=== PATIENT | female | born 1975 | race Caucasian/White ===

== ENCOUNTER 2019-11-01 10:15 | Observation (INO) ==
--- OUTSIDE RECORDS SUMMARY | 2019-11-01 10:17 | External Medical Summary | Continuity of Care Document ---
:1975 Author Name Eliecer Mathur Address Unavailable Unavailable , Care Team Providers Name Role Phone Jose Mathur Unavailable [email or web address] Active medical history not documented Allergies and Adverse Reactions Allergy history not documented Medications Medications not documented Procedures Procedures not documented Immunizations Immunizations not documented Plan of Treatment Planned Observations Planned Goals not documented Results No Known Results Results not documented
--- OUTSIDE RECORDS SUMMARY | 2019-11-01 10:17 | External Medical Summary | Continuity of Care Document ---
:1975 Author Name Eliecer Mathur Address Unavailable Unavailable , Care Team Providers Name Role Phone Jose Mathur Unavailable [email or web address] Active medical history not documented Allergies and Adverse Reactions Allergy history not documented Medications Medications not documented Procedures Procedures not documented Immunizations Immunizations not documented Plan of Treatment Planned Observations Planned Goals not documented Results No Known Results Results not documented
[2019-11-01] MEDS ORDERED: SODIUM CHLORIDE 0.9% 1000ML 1,000 ML IV ONE ×2 (10:59→12:26)
--- NOTE | 2019-11-01 11:03 | Emergency Department Note ---
Impression & Plan Sepsis, Leukocytosis, Pyelonephritis ED Provider Note NAME: REY FITZGERALD AGE: 44 SEX: F : 1975 ARRIVES VIA: Walk-In INFORMANT: Patient ED PROVIDER(S): Seymour Potts DO CHIEF COMPLAINT: Abdominal pain HPI: Patient is a 44-year-old female who presents the ER with symptoms starting this past Wednesday. She notes she had diffuse myalgias and arthralgias. At that time she had a fever of 101. She did have a headache at that time. Headache has dissipated since then. She notes that she also has a cough which started. It is been dry. She denies any loss of taste or smell. No chest pain but does have some shortness of breath with the coughing.. She notes that Wednesday she started having epigastric abdominal pain. She has not been eating since then. She admits to nausea. No vomiting. Last bowel movement was within the past 24 hours. No dysuria urgency or frequency belly pain is constant. Pain is a 5 out of 10. Patient was sent in for further evaluation of her abdominal pain. She is currently being tested for coronavirus and does not have the results. ROS: See above HPI for pertinent positives & negatives. A total of 10 systems reviewed and were otherwise negative. PAST MEDICAL HISTORY:See Below PAST SURGICAL HISTORY:See Below FAMILY HISTORY:See Below SOCIAL HISTORY:See Below HOME MEDICATIONS:See Below ALLERGIES:See Below VITALS:See Below PHYSICAL EXAMINATION: GENERAL: Sitting up in bed, alert, well appearing, well nourished, no distress, non-toxic EYE EXAM: normal conjunctiva. OROPHARYNX: no exudate, no erythema, lips, buccal mucosa, and tongue normal and mucous membranes are moist NECK: supple, no nuchal rigidity, no adenopathy, non-tender LUNGS: Clear to auscultation. Normal chest wall mechanics HEART: no murmurs, S1 normal and S2 normal ABDOMEN: abdomen soft, under palpation in the epigastric region, normo-active bowel sounds, no masses, no rebound or guarding. BACK: Back is symmetrical on inspection and there is no deformity, no midline tenderness, no CVA tenderness. SKIN: no rashes and no bruising UPPER EXTREMITIES: upper extremities are grossly normal. LOWER EXTREMITIES: No pitting edema. NEURO EXAM: Normal sensorium, cranial nerves II-XII grossly intact, normal speech, no gross weakness of arms, no gross weakness of legs. MEDICAL DECISION MAKING: Patient is a 44-year-old female who presents the ER for fevers, belly pain, and headache. IV was established blood work was obtained. Labs show a leukocytosis of 18,000. No significant anemia. BMP with a slightly elevated chloride. There is an elevation in her liver functions as well as a bilirubin. Lipase is normal. UA does suggest a clear UTI. CT abdomen pelvis confirms pyelonephritis although she has no back pain. CT head was done at the same time as she had a severe headache initially in prep for lumbar puncture although this was not performed with the pyelonephritis no clear source of infection. She was given IV fluids and IV Rocephin. Heart rate trended down from 120 to the high 80s to 90s. With her leukocytosis, transaminitis and pyelonephritis combination with her tachycardia and fevers at home discussed with the hospitalist for observation. Triage Nursing notes reviewed. Prior medical records reviewed Vital Signs: reviewed and remarkable for tachycardic Differential diagnosis: Differential diagnosis: Etiologies such as viral syndrome, otitis, pharyngitis, pneumonia, influenza, meningitis, urinary tract infection, sepsis, bacteremia, as well as others were entertained. ER treatment provided: See below Diagnostics interpreted by me: ECG: none Cardiac Monitoring: An order was placed for continuous cardiac monitoring. The monitor shows a rate of 110 with sinus rhythm. Laboratory studies: As stated above and show below. Imaging studies: CT abdomen pelvis shows acute pyelonephritis CT head was negative. Portable AP upright 1 view of the chest shows no focal infiltrate Consultation(s): Discussed with hospitalist for admission. ED COURSE: Procedures: none Critical Care: None Past Med/Surg History Surgical History (Updated 11/01/19 @ 13:50 by Angeles Santos MD) History of bilateral tubal ligation History of delivery X2 History of hysterectomy With extensive MAGDA with uterus and bladder to anterior abdominal wall Social History Smoking Status: Current every day smoker Feels Safe at Home: Yes Allergies Allergies Allergy/AdvReac Type Severity Reaction Status Date / Time No Known Allergies Allergy Unknown Verified 11/01/19 12:01 Home Meds Home Medications Medication Instructions Recorded Confirmed esomeprazole magnesium [Nexium] 40 mg PO PM 11/01/19 11/01/19 naproxen sodium [Aleve] 880 mg PO Q12H PRN 11/01/19 11/01/19 Results & Data (ED) Vital Signs Vital Signs - 24 hr 11/01/19 10:27 11/01/19 10:59 11/01/19 11:00 Temperature Temperature Source Pulse Rate 117 H 104 H 103 H Respiratory Rate 20 13 19 Blood Pressure 137/89 Blood Pressure Mean 105 Pulse Oximetry 98 Oxygen Delivery Method Room Air Sepsis Recent Fever Within 48 Hours No Sepsis New/Unexplained Change in Mental Status No Sepsis Action Taken by Nursing No Action Required 11/01/19 11:03 11/01/19 11:04 11/01/19 11:08 Temperature Temperature Source Pulse Rate 102 H 102 H Respiratory Rate 13 14 Blood Pressure 119/77 Blood Pressure Mean 84 Pulse Oximetry 100 Oxygen Delivery Method Room Air Sepsis Recent Fever Within 48 Hours Sepsis New/Unexplained Change in Mental Status Sepsis Action Taken by Nursing 11/01/19 11:30 11/01/19 11:31 11/01/19 12:00 Temperature Temperature Source Pulse Rate 102 H 93 H 87 Respiratory Rate 23 18 15 Blood Pressure 136/56 L Blood Pressure Mean 69 Pulse Oximetry Oxygen Delivery Method Sepsis Recent Fever Within 48 Hours Sepsis New/Unexplained Change in Mental Status Sepsis Action Taken by Nursing 11/01/19 12:01 11/01/19 12:02 11/01/19 12:30 Temperature Temperature Source Pulse Rate 92 H 92 H 82 Respiratory Rate 21 21 18 Blood Pressure 125/86 113/76 Blood Pressure Mean 94 84 Pulse Oximetry Oxygen Delivery Method Sepsis Recent Fever Within 48 Hours Sepsis New/Unexplained Change in Mental Status Sepsis Action Taken by Nursing 11/01/19 12:31 11/01/19 12:37 11/01/19 13:00 Temperature 36.8 C Temperature Source Oral Pulse Rate 85 94 H Respiratory Rate 23 13 Blood Pressure Blood Pressure Mean Pulse Oximetry Oxygen Delivery Method Sepsis Recent Fever Within 48 Hours Sepsis New/Unexplained Change in Mental Status Sepsis Action Taken by Nursing 11/01/19 13:30 11/01/19 13:50 11/01/19 14:00 Temperature Temperature Source Pulse Rate 85 87 94 H Respiratory Rate 23 17 15 Blood Pressure 143/99 H 165/104 H Blood Pressure Mean 111 117 Pulse Oximetry Oxygen Delivery Method Sepsis Recent Fever Within 48 Hours Sepsis New/Unexplained Change in Mental Status Sepsis Action Taken by Nursing 11/01/19 14:01 11/01/19 14:46 11/01/19 14:47 Temperature Temperature Source Pulse Rate 97 H 94 H Respiratory Rate 20 16 20 Blood Pressure 136/95 Blood Pressure Mean 108 Pulse Oximetry Oxygen Delivery Method Sepsis Recent Fever Within 48 Hours Sepsis New/Unexplained Change in Mental Status Sepsis Action Taken by Nursing 11/01/19 14:48 11/01/19 15:00 11/01/19 15:01 Temperature Temperature Source Pulse Rate 87 96 H 88 Respiratory Rate 18 19 22 Blood Pressure 129/92 Blood Pressure Mean 110 Pulse Oximetry Oxygen Delivery Method Sepsis Recent Fever Within 48 Hours Sepsis New/Unexplained Change in Mental Status Sepsis Action Taken by Nursing Laboratory Data Result diagrams: 11/01/19 11:00 11/01/19 11:00 Lab Results 11/01/19 11/01/19 11/01/19 Range/Units 11:00 11:00 11:00 WBC 18.73 H (4.8-10.8) K/uL RBC 4.49 (4.2-5.4) M/uL Hgb 14.2 (12.0-16.0) g/dL Hct 40.6 (37-47) % MCV 90.4 (80-100) fL MCH 31.6 (25-34) pg MCHC 35.0 (32-36) g/dL RDW Std Deviation 43.2 (36.4-46.3) fL RDW Coeff of Dwight 13.1 (11.5-14.5) % Plt Count 386 (130-400) K/uL MPV 9.4 (7.4-10.4) fL Immature Gran % (Auto) 0.5 % Neut % (Auto) 74.7 % Lymph % (Auto) 10.8 % Gove % (Auto) 12.7 % Eos % (Auto) 1.1 % Baso % (Auto) 0.2 % Neut # (Auto) 13.99 H (1.4-6.5) K/uL Lymph # (Auto) 2.03 (1.2-3.4) K/uL Gove # (Auto) 2.38 H (0.11-0.59) K/uL Eos # (Auto) 0.20 (0-0.5) K/uL Baso # (Auto) 0.03 (0-0.2) K/uL Immature Gran # (Auto) 0.10 H (0.00-0.02) K/uL Sodium 139 (136-145) mmol/L Potassium 3.5 (3.5-5.1) mmol/L Chloride 108 H (98-107) mmol/L Carbon Dioxide 23 (21-32) mmol/L Anion Gap 8.0 (3-11) BUN 7 (7-18) mg/dl Creatinine 0.86 (0.6-1.2) mg/dl Est Cr Clr Drug Dosing 74.1 ml/min Est GFR ( Amer) 95.9 Est GFR (Non-Af Amer) 82.7 BUN/Creatinine Ratio 8.5 L (10-20) Glucose 103 H (70-99) mg/dl Calcium 9.0 (8.5-10.1) mg/dl Total Bilirubin 1.3 H (0.2-1) mg/dl AST 47 H (15-37) U/L ALT 162 H (12-78) U/L Alkaline Phosphatase 275 H (45-117) U/L Total Protein 8.0 (6.4-8.2) gm/dl Albumin 3.0 L (3.4-5.0) gm/dl Globulin 5.0 H (2.5-4.0) gm/dl Albumin/Globulin Ratio 0.6 L (0.9-2) Lipase 37 L (73-393) U/L Urine Color Kim Urine Appearance Cloudy A (Clear) Urine pH 5.5 (4.5-7.5) Ur Specific Harrah 1.025 (1.000-1.030) Urine Protein 2+ H (Negative) Urine Glucose (UA) Negative (Negative) Urine Ketones Trace H (Negative) Urine Blood 3+ H (Negative) Urine Nitrite Positive A (Negative) Urine Bilirubin 2+ H (Negative) Urine Urobilinogen Negative (Negative) Ur Leukocyte Esterase 1+ H (Negative) Urine RBC >30 H (0-4) /hpf Urine WBC >30 H (0-5) /hpf Ur Epithelial Cells >30 H (0-5) /lpf Urine Bacteria 2+ H (Negative) Administered Medications Ciprofloxacin (Cipro / D5w) 400 mg in 200 mls @ 100 mls/hr IV Q12H DOROTHY; Protocol Stop: 11/11/19 14:14 Last Admin: 11/01/19 15:11 Dose: 100 mls/hr Documented by: [id number] Metronidazole (Flagyl) 500 mg in 100 mls @ 100 mls/hr IV Q8H DOROTHY Stop: 11/11/19 14:14 Last Admin: 11/01/19 15:11 Dose: 100 mls/hr Documented by: [id number] Discontinued Medications Sodium Chloride (Nss 1000ml) 1,000 mls @ 999 mls/hr IV .Q1H1M ONE Stop: 11/01/19 11:59 Last Infusion: 11/01/19 12:35 Dose: 0 mls/hr Documented by: [id number] Admin: 11/01/19 11:10 Dose: 999 mls/hr Documented by: [id number] Ceftriaxone Sodium (Rocephin) 1,000 mg in 50 mls @ 100 mls/hr IV NOW STA Stop: 11/01/19 12:54 Last Infusion: 11/01/19 13:18 Dose: 0 mls/hr Documented by: [id number] Admin: 11/01/19 12:34 Dose: 100 mls/hr Documented by: [id number] Sodium Chloride (Nss 1000ml) 1,000 mls @ 999 mls/hr IV .Q1H1M ONE Stop: 11/01/19 13:26 Last Infusion: 11/01/19 14:05 Dose: 0 mls/hr Documented by: [id number] Admin: 11/01/19 12:35 Dose: 999 mls/hr Documented by: [id number] Ketorolac Tromethamine (Toradol) 10 mg IV NOW ONE Stop: 11/01/19 12:27 Last Admin: 11/01/19 12:34 Dose: 10 mg Documented by: [id number] Discharge Plan Visit Data Chief Complaint: Abdominal Pain Stated Complaint: UPPER ABD PAIN ED Provider: Seymour Potts Discharge Problem: Sepsis, Leukocytosis, Pyelonephritis Forms Stand Alone Forms: [email or web address] Prescriptions Prescriptions: No Action naproxen sodium [Aleve] 220 mg Tablet 880 mg PO Q12H PRN (Reason: Pain) RF: 0 esomeprazole magnesium [Nexium] 20 mg Capsule,Delayed Release(Dr/Ec) 40 mg PO PM RF: 0 Discharge Problem: Sepsis Qualifiers: Sepsis type: sepsis due to unspecified organism Sepsis acute organ dysfunction status: unspecified Qualified Code(s): A41.9 - Sepsis, unspecified organism Leukocytosis Qualifiers: Leukocytosis type: unspecified Qualified Code(s): D72.829 - Elevated white blood cell count, unspecified
[2019-11-01 11:14] LABS: Basophils # (auto) 0.03 K/uL (0-0.2); Basophils % (auto) 0.2 %; Eosinophils % (auto) 1.1 %; Hematocrit (blood only) 40.6 % (37-47); Hemoglobin 14.2 g/dL (12.0-16.0); Immature Granulocytes % (auto) 0.5 %; Lymphocytes # (auto) 2.03 K/uL (1.2-3.4); Lymphocytes % (auto) 10.8 %; Mean Corpuscular Hemoglobin 31.6 pg (25-34); Mean Corpuscular Volume 90.4 fL (80-100); Mean Platelet Volume 9.4 fL (7.4-10.4); Monocytes # (auto) 2.38 K/uL (0.11-0.59); Monocytes % (auto) 12.7 %; Neutrophils # (auto) 13.99 K/uL (1.4-6.5); Neutrophils % (auto) 74.7 %; Platelet Count 386 K/uL (130-400); RDW Coefficient of Variation 13.1 % (11.5-14.5); RDW Standard Deviation 43.2 fL (36.4-46.3); Red Blood Count 4.49 M/uL (4.2-5.4); White Blood Count 18.73 K/uL (4.8-10.8)
[2019-11-01 11:31] LABS: Appearance Urine Cloudy (Clear); Blood Urine 3+ (Negative); Color Urine Amber; Glucose Urine UA Negative (Negative); Ketones Urine Trace (Negative); Leukocyte Esterase Urine 1+ (Negative); Nitrite Urine Positive (Negative); Protein Urine 2+ (Negative); Specific Gravity Urine 1.025 (1.000-1.030); Urobilinogen Urine Negative (Negative); pH Urine 5.5 (4.5-7.5)
[2019-11-01 11:33] LABS: Bilirubin Urine 2+ (Negative); Ictotest Urine Positive (Negative)
[2019-11-01 11:34] LABS: BUN Creatinine Ratio 8.5 (10-20); Creatinine Clr Calc Pharmacy 74.1 ml/min; Est GFR (African American) 95.9; Est GFR (Non-African American) 82.7; Potassium 3.5 mmol/L (3.5-5.1)
[2019-11-01 11:37] LABS: Albumin Globulin Ratio 0.6 (0.9-2); Bilirubin,Total 1.3 mg/dl (0.2-1)
[2019-11-01 11:48] LABS: Bacteria Urine 2+ (Negative); Epithelial Cell Urine >30 /lpf (0-5); RBC Urine >30 /hpf (0-4); WBC Urine >30 /hpf (0-5)
--- NOTE | 2019-11-01 12:00 | CT Scan Report ---
CT head/brain wo con CT DOSE: 638.56 mGycm HISTORY: Mental status change andrade TECHNIQUE: Multiaxial CT images of the head were performed without the use of intravenous contrast. A dose lowering technique was utilized adhering to the principles of ALARA. Comparison: None. Findings: The paranasal sinuses and mastoid air cells are clear. The calvarium and skull base are int act. The ventricles and sulci are within normal limits. There is no mass, hematoma, midline shift, or acute infarct. Impression: No acute intracranial abnormality. ACT 112: Negative or not required by law. The above report was generated using voice recognition software. It may contain grammatical, syntax or spelling errors. Electronically signed by: Yoan Mejia M.D. 11/01/2019 11:59 AM
--- NOTE | 2019-11-01 12:04 | CT Scan Report ---
CT abd pelvis IV con only CT DOSE: 960.64 mGycm HISTORY: Pain. Fever. eipgastric abd pain w/ fever TECHNIQUE: Multiaxial CT images of the abdomen and pelvis were performed following the use of intrave nous contrast. A dose lowering technique was utilized adhering to the principles of ALARA. COMPARISON STUDY: None. FINDINGS: Lung bases are clear. Liver spleen and pancreas are unremarkable. Left kidney enhances uniformly. The right kidney shows heterogeneous enhancement characteristics as mid to upper pole. This is seen t o a lesser extent involving the inferior pole has suggestive of pyelonephritis. No well-defined abscess at this time. No evidence for hydronephrosis. The bowel pattern overall is nonobstructive. There is a 5 cm right ovarian cyst. Bladder is midline. IMPRESSION: 1. Right renal pyelonephritis. 2. 5 cm right ovarian cyst. ACT 112: Negative or not required by law. The above report was generated using voice recognition software. It may contain grammatical, syntax or spelling errors. Electronically signed by: Yoan Mejia M.D. 11/01/2019 12:03 PM
--- NOTE | 2019-11-01 12:13 | XRay Report ---
XR chest 1V portable CLINICAL HISTORY: cough fever COMPARISON STUDY: No previous studies for comparison. FINDINGS: The cardiac and mediastinal contours are normal. There is no evidence of focal pulmonary co nsolidation. There is no evidence of failure. No pleural effusions are visualized.[ IMPRESSION: No active disease in the chest. ACT 112: Negative or not required by law. Electronically signed by: Ata Benson M.D. 11/01/2019 12:11 PM
[2019-11-01] MEDS ORDERED: cefTRIAXone SODIUM 1,000 MG/50 ML BAG IV STA (12:25)
[2019-11-01] MEDS ORDERED: KETOROLAC TROMETHAMINE 15 MG/ML VIAL IV ONE (12:26)
--- NOTE | 2019-11-01 13:49 | History & Physical Report ---
Date of Service November 01, 2019 Assessment & Plan (1) Pyelonephritis: With Acute Right sided pyelonephritis--> with UA+, fevers/chills, RUQ abd pain, CT A/P confirms Rt pyelo, leukocytosis and cloudy dark urine. She is tolerating po, and is borderline whether she needs to stay overnight in hospital, but given sepsis criteria and elevated LFTs, I feel she needs to come in on observation for further evaluation -obs to med/surg floor -converted to IV Cipro rather than Rocephin in case of GB issue as below -follow Ur cx, BCxs -IV toradol as needed for pain -if tolerating po and WBC count improving, LFTs improving, may be able to be discharged tomorrow (2) Sepsis: Secondary to pyelo as above CXR negative, no evidence of other infection on CT abd/pel, checking RUQ US for elevated LFTs and RUQ pain With mild GARCIA secondary to fever but do not suspect COVID, tick borne illness, PNA. Do NOT suspect meningitis -received 2L NS in ER, will give another 1 L NS -follow BCxs, Ur cx -follow CBC -continue IV CIpro and Flagyl and dc Flagyl if no evidence of cholecystitis on RUQ US (3) GERD (gastroesophageal reflux disease): continue PPI daily (4) Depression with anxiety: not on meds since she no longer has a doctor but used to be on Zoloft and trazadone -will not restart at this time, stable -needs outpt establishment with a PCP (5) Current smoker: encouraged smoking cessation but she declines at this time (6) Elevated LFTs: With TBili mildly elevated, AST and ALT and Alk phos elevated With RUQ pain--> check RUQ US -treat with Cipro and Flagyl empirically and dc FLagyl if no cholecystitis -could be from sepsis -follow LFTs in the AM (7) Headache: as above, likely secondary to fever and dehydration, acute illness -toradol as needed for GARCIA -treating pyelo with IV abx (8) DVT prophylaxis: SCDs Dipso-admit on OBS for acute pyelo History of Present Illness Chief Complaint: Fevers, abd pain, headache,cloudy urine Primary Care Provider: NO PCP This pt is a 44 yo female with a h/o GERD and depression/anxiety who presents to the ER with 4 days of fever, mild headache, and RUQ abdominal pain. She also noticed that her urine was cloudy and dark in color. She always have urinary frequency so that was no different; denies dysuria. Her abd pain is moderate and in right side of abdomen, not associated with eating. Denies N/V/D/Constipation. Her fever on Sat was up to 101.3 at home and she has continued to have chills and sweats since that time. She has been taking Aleve at home. She thought perhaps she had COVID and was going to "ride it out" at home, but then decided to go to an Urgent care today to get tested and then they sent her to the ER. In the ER, she was found to have a leukocytosis of 18k, an abnormal UA consistent with infection, elevated LFTs, and right sided pyelonephritis on CT abd/pel. RUQ US was negative for GB issues. She has no h/o liver issues in the past. She was given IV Rocephin and IV toradol x 1 in the ER. Allergies Allergy/AdvReac Type Severity Reaction Status Date / Time midazolam [From Versed] Allergy Mild Itching Verified 11/01/19 20:28 Home Medications Home Medications Medication Instructions Recorded Confirmed Type esomeprazole magnesium [Nexium] 40 mg PO PM 11/01/19 11/01/19 History naproxen sodium [Aleve] 880 mg PO Q12H PRN 11/01/19 11/01/19 History Past Med/Surg History Medical History (Updated 11/01/19 @ 20:57 by Angeles Santos MD) Current smoker Depression with anxiety GERD (gastroesophageal reflux disease) Surgical History (Updated 11/01/19 @ 20:34 by Angeles Santos MD) History of bilateral tubal ligation History of delivery X2 History of hysterectomy With extensive MAGDA with uterus and bladder to anterior abdominal wall History of reduction mammoplasty Family History Mother Bipolar disorder Dyslipidemia Hypertension COPD (chronic obstructive pulmonary disease) Hypothyroidism Father GERD (gastroesophageal reflux disease) Cancer Esophageal CA Dyslipidemia Hypertension Sister Cancer Cervical CA Depression Social History Smoking Status: Current every day smoker Tobacco Type: Cigarettes Age Started Using Tobacco: 17; Cigarettes Per Day: 5; Hx Alcohol Use: No Hx Substance Use: No Preferred Language: Yoruba Inspector Weights And Measures Required: No Beliefs That Will Affect Care: None Current Living Situation: Family current occupational status: 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 Feels Safe at Home: Yes Safety Concerns: Feels Safe At This Time Review of Systems Review of Systems: All systems reviewed & are unremarkable except as noted in HPI & below Physical Exam Constitutional: WD/WN, vitals as above Eyes: PERRL, conjunctivae normal, anicteric sclerae ENMT: external ear and nose normal, oropharynx normal Neck: trachea midline, no thyromegaly Respiratory: normal respiratory effort, lungs clear to auscultation Cardiovascular: RRR, no murmur, no edema Chest (Breasts): Chest: normal inspection of chest Gastrointestinal (Abdomen): Inspection/Auscultation: abdomen normal to inspection and normal bowel sounds; abdomen not distended Percussion/Palpation: + abdomen tender (in RUQ) and abdomen soft; no guarding and abdomen not rigid no CVA tenderness Musculoskeletal: Extremities: extremities normal to inspection; no cyanosis and no clubbing Skin: no rashes, warm and dry Neurologic: moves all extremities and awake; no focal motor deficits Psychiatric: A+Ox3, euthymic affect Lymphatic: no lymphedema Results & Data Results & Data ([facility]) Vital Signs (Past 12 Hours) Vital Signs Temp Pulse Resp BP Pulse Ox 11/01/19 13:30 85 23 11/01/19 13:00 94 H 13 11/01/19 12:37 36.8 C 11/01/19 12:31 85 23 11/01/19 12:30 82 18 113/76 11/01/19 12:02 92 H 21 11/01/19 12:01 92 H 21 125/86 11/01/19 12:00 87 15 11/01/19 11:31 93 H 18 136/56 L 11/01/19 11:30 102 H 23 11/01/19 11:08 100 11/01/19 11:04 102 H 14 11/01/19 11:03 102 H 13 119/77 11/01/19 11:00 103 H 19 11/01/19 10:59 104 H 13 07/29/20 10:27 117 H 20 137/89 98 Laboratory Results 11/01/19 11/01/19 11/01/19 Range/Units 11:00 11:00 11:00 WBC 18.73 H (4.8-10.8) K/uL RBC 4.49 (4.2-5.4) M/uL Hgb 14.2 (12.0-16.0) g/dL Hct 40.6 (37-47) % MCV 90.4 (80-100) fL MCH 31.6 (25-34) pg MCHC 35.0 (32-36) g/dL RDW Std Deviation 43.2 (36.4-46.3) fL RDW Coeff of Dwight 13.1 (11.5-14.5) % Plt Count 386 (130-400) K/uL MPV 9.4 (7.4-10.4) fL Immature Gran % (Auto) 0.5 % Neut % (Auto) 74.7 % Lymph % (Auto) 10.8 % Wetzel % (Auto) 12.7 % Eos % (Auto) 1.1 % Baso % (Auto) 0.2 % Neut # (Auto) 13.99 H (1.4-6.5) K/uL Lymph # (Auto) 2.03 (1.2-3.4) K/uL Wetzel # (Auto) 2.38 H (0.11-0.59) K/uL Eos # (Auto) 0.20 (0-0.5) K/uL Baso # (Auto) 0.03 (0-0.2) K/uL Immature Gran # (Auto) 0.10 H (0.00-0.02) K/uL Sodium 139 (136-145) mmol/L Potassium 3.5 (3.5-5.1) mmol/L Chloride 108 H (98-107) mmol/L Carbon Dioxide 23 (21-32) mmol/L Anion Gap 8.0 (3-11) BUN 7 (7-18) mg/dl Creatinine 0.86 (0.6-1.2) mg/dl Est Cr Clr Drug Dosing 74.1 ml/min Est GFR ( Amer) 95.9 Est GFR (Non-Af Amer) 82.7 BUN/Creatinine Ratio 8.5 L (10-20) Glucose 103 H (70-99) mg/dl Calcium 9.0 (8.5-10.1) mg/dl Total Bilirubin 1.3 H (0.2-1) mg/dl AST 47 H (15-37) U/L ALT 162 H (12-78) U/L Alkaline Phosphatase 275 H (45-117) U/L Total Protein 8.0 (6.4-8.2) gm/dl Albumin 3.0 L (3.4-5.0) gm/dl Globulin 5.0 H (2.5-4.0) gm/dl Albumin/Globulin Ratio 0.6 L (0.9-2) Lipase 37 L (73-393) U/L Urine Color Kim Urine Appearance Cloudy A (Clear) Urine pH 5.5 (4.5-7.5) Ur Specific [place] 1.025 (1.000-1.030) Urine Protein 2+ H (Negative) Urine Glucose (UA) Negative (Negative) Urine Ketones Trace H (Negative) Urine Blood 3+ H (Negative) Urine Nitrite Positive A (Negative) Urine Bilirubin 2+ H (Negative) Urine Urobilinogen Negative (Negative) Ur Leukocyte Esterase 1+ H (Negative) Urine RBC >30 H (0-4) /hpf Urine WBC >30 H (0-5) /hpf Ur Epithelial Cells >30 H (0-5) /lpf Urine Bacteria 2+ H (Negative) Diagnostic Findings CT abd pelvis IV con only CT DOSE: 960.64 mGycm HISTORY: Pain. Fever. eipgastric abd pain w/ fever TECHNIQUE: Multiaxial CT images of the abdomen and pelvis were performed following the use of intravenous contrast. A dose lowering technique was utilized adhering to the principles of ALARA. COMPARISON STUDY: None. FINDINGS: Lung bases are clear. Liver spleen and pancreas are unremarkable. Left kidney enhances uniformly. The right kidney shows heterogeneous enhancement characteristics as mid to upper pole. This is seen to a lesser extent involving the inferior pole has suggestive of pyelonephritis. No well-defined abscess at this time. No evidence for hydronephrosis. The bowel pattern overall is nonobstructive. There is a 5 cm right ovarian cyst. Bladder is midline. IMPRESSION: 1. Right renal pyelonephritis. 2. 5 cm right ovarian cyst. XR chest 1V portable CLINICAL HISTORY: cough fever COMPARISON STUDY: No previous studies for comparison. FINDINGS: The cardiac and mediastinal contours are normal. There is no evidence of focal pulmonary consolidation. There is no evidence of failure. No pleural effusions are visualized.[ IMPRESSION: No active disease in the chest. CT head/brain wo con CT DOSE: 638.56 mGycm HISTORY: Mental status change garcia TECHNIQUE: Multiaxial CT images of the head were performed without the use of intravenous contrast. A dose lowering technique was utilized adhering to the principles of ALARA. Comparison: None. Findings: The paranasal sinuses and mastoid air cells are clear. The calvarium and skull base are intact. The ventricles and sulci are within normal limits. There is no mass, hematoma, midline shift, or acute infarct. Impression: No acute intracranial abnormality. Code Status & VTE Plan Code Status FULL CODE VTE Prophylaxis Plan VTE Prophylaxis will be ordered: Yes PG Care Time/CCT Total # of Minutes Spent Total Time Spent with Patient: Total time spent is greater than 50% in coordination of care (as documented) at patient's floor/unit and/or counseling patient: Coding Level of Care Code 57142 OBS Care - Level 3 Diagnoses Pyelonephritis N12 Sepsis A41.9 Sepsis acute organ dysfunction status: unspecified Sepsis type: sepsis due to unspecified organism GERD (gastroesophageal reflux disease) K21.9 Depression with anxiety F41.8 Current smoker F17.200 Elevated LFTs R79.89 Headache R51 DVT prophylaxis Z29.9 (1) Sepsis Sepsis acute organ dysfunction status: unspecified Sepsis type: sepsis due to unspecified organism Qualified Code(s): A41.9 - Sepsis, unspecified organism
[2019-11-01] MEDS ORDERED: KETOROLAC 30 MG/ML VIAL IV PRN (14:13)
[2019-11-01] MEDS ORDERED: metroNIDAZOLE 500 MG/100 ML BAG IV SCH (14:15)
--- NOTE | 2019-11-01 14:44 | Ultrasound Report ---
US gallbladder HISTORY: Pain. Nausea. RUQ pain,elevated LFTs COMPARISON: None. FINDINGS: Normal gallbladder. No shadowing gallstones. Common bile duct 3 mm. Liver is uniform throughout. Right kidney is negative for hydronephrosis. IMPRESSION: Normal study. ACT 112: Negative or not required by law. The above report was generated using voice recognition software. It may contain grammatical, syntax or spelling errors. Electronically signed by: Yoan Mejia M.D. 11/01/2019 2:43 PM
[2019-11-01] MEDS: CIPROFLOXACIN / D5W 400 MG/200 ML BAG IV SCH (15:11)
[2019-11-01] MEDS ORDERED: ONDANSETRON INJ 2 MG/ML 2 ML VIAL IV PRN (16:57)
[2019-11-01] MEDS ORDERED: ACETAMINOPHEN 325 MG TAB PO PRN (16:57)
[2019-11-01] MEDS ORDERED: PANTOprazole 40 MG TAB PO SCH (21:00)
[2019-11-01] MEDS ORDERED: SODIUM CHLORIDE 0.9% 1000ML 1,000 ML IV SCH (21:15)
[2019-11-02] MEDS: CIPROFLOXACIN / D5W 400 MG/200 ML BAG IV SCH (03:57)
[2019-11-02 08:20] LABS: Basophils # (auto) 0.03 K/uL (0-0.2); Basophils % (auto) 0.2 %; Eosinophils # (auto) 0.29 K/uL (0-0.5); Eosinophils % (auto) 2.1 %; Hematocrit (blood only) 33.9 % (37-47); Hemoglobin 11.5 g/dL (12.0-16.0); Immature Granulocytes # (auto) 0.09 K/uL (0.00-0.02); Immature Granulocytes % (auto) 0.6 %; Lymphocytes # (auto) 2.32 K/uL (1.2-3.4); Lymphocytes % (auto) 16.7 %; Mean Corpuscular Hemoglobin 30.9 pg (25-34); Mean Corpuscular Hgb Conc 33.9 g/dL (32-36); Mean Corpuscular Volume 91.1 fL (80-100); Mean Platelet Volume 9.3 fL (7.4-10.4); Monocytes # (auto) 1.48 K/uL (0.11-0.59); Monocytes % (auto) 10.7 %; Neutrophils # (auto) 9.66 K/uL (1.4-6.5); Neutrophils % (auto) 69.7 %; Platelet Count 353 K/uL (130-400); RDW Coefficient of Variation 13.3 % (11.5-14.5); RDW Standard Deviation 44.9 fL (36.4-46.3); Red Blood Count 3.72 M/uL (4.2-5.4); White Blood Count 13.87 K/uL (4.8-10.8)
[2019-11-02 09:00] LABS: Albumin Level 2.4 gm/dl (3.4-5.0); BUN Creatinine Ratio 9.8 (10-20); Bilirubin Direct 0.3 mg/dl (0-0.2); Calcium 8.4 mg/dl (8.5-10.1); Creatinine Clr Calc Pharmacy 95.2 ml/min; Est GFR (African American) 124.8; Est GFR (Non-African American) 107.7; Potassium 3.1 mmol/L (3.5-5.1)
[2019-11-02 09:15] LABS: Bilirubin,Total 0.6 mg/dl (0.2-1); Total Protein 6.5 gm/dl (6.4-8.2)
[2019-11-02] MEDS ORDERED: POTASSIUM CHLORIDE 20 MEQ TABCR PO SCH (09:15)
--- NOTE | 2019-11-02 09:15 | Hospitalist Progress Note ---
Date of Service November 02, 2019 Assessment & Plan (1) Pyelonephritis: With Acute Right sided pyelonephritis--> with UA+, fevers/chills, RUQ abd pain, CT A/P confirms Rt pyelo, leukocytosis and cloudy dark urine. She is tolerating po, and is borderline whether she needs to stay overnight in hospital, but given sepsis criteria and elevated LFTs, -obs to med/surg floor -converted to IV Cipro rather than Rocephin in case of GB issue as below -follow Ur cx, BCxs -IV toradol as needed for pain - (2) Sepsis: Secondary to pyelo as above CXR negative, no evidence of other infection on CT abd/pel, checking RUQ US for elevated LFTs and RUQ pain With mild GARCIA secondary to fever but do not suspect COVID, tick borne illness, PNA. Do NOT suspect meningitis -received 2L NS in ER, will give another 1 L NS -follow BCxs, Ur cx -follow CBC -continue IV CIpro and Flagyl (3) GERD (gastroesophageal reflux disease): continue PPI daily (4) Depression with anxiety: not on meds since she no longer has a doctor but used to be on Zoloft and trazadone -will not restart at this time, stable -needs outpt establishment with a PCP (5) Current smoker: encouraged smoking cessation but she declines at this time (6) Elevated LFTs: With TBili mildly elevated, AST and ALT and Alk phos elevated With RUQ pain-->negative RUQ US -treat with Cipro and Flagyl empirically and dc FLagyl if no cholecystitis -could be from sepsis -follow LFTs in the AM (7) Headache: as above, likely secondary to fever and dehydration, acute illness -toradol as needed for GARCIA -treating pyelo with IV abx (8) DVT prophylaxis: SCDs Dipso-admit on OBS for acute pyelo Admission and Anticipated Discharge Date Admission Date: November 01, 2019 Results & Data Results & Data ([facility]) Vital Signs (Past 12 Hours) Vital Signs Temp Pulse Resp BP Pulse Ox 11/02/19 07:06 98.1 F 68 18 101/62 98 11/01/19 22:00 98.4 F 90 16 124/76 95 PG Care Time/CCT Total # of Minutes Spent Total Time Spent with Patient: Total time spent is greater than 50% in coordination of care (as documented) at patient's floor/unit and/or counseling patient: Coding Diagnoses Pyelonephritis N12 Sepsis A41.9 Sepsis acute organ dysfunction status: unspecified Sepsis type: sepsis due to unspecified organism GERD (gastroesophageal reflux disease) K21.9 Depression with anxiety F41.8 Current smoker F17.200 Elevated LFTs R79.89 Headache R51 DVT prophylaxis Z29.9 (1) Sepsis Sepsis acute organ dysfunction status: unspecified Sepsis type: sepsis due to unspecified organism Qualified Code(s): A41.9 - Sepsis, unspecified organism
--- NOTE | 2019-11-02 17:47 | Discharge Summary ---
Date of Service November 02, 2019 Admission HPI Per Admitting Provider This pt is a 44 yo female with a h/o GERD and depression/anxiety who presents to the ER with 4 days of fever, mild headache, and RUQ abdominal pain. She also noticed that her urine was cloudy and dark in color. She always have urinary frequency so that was no different; denies dysuria. Her abd pain is moderate and in right side of abdomen, not associated with eating. Denies N/V/D/Constipation. Her fever on Sat was up to 101.3 at home and she has continued to have chills and sweats since that time. She has been taking Aleve at home. She thought perhaps she had COVID and was going to "ride it out" at home, but then decided to go to an Urgent care today to get tested and then they sent her to the ER. In the ER, she was found to have a leukocytosis of 18k, an abnormal UA consistent with infection, elevated LFTs, and right sided pyelonephritis on CT abd/pel. RUQ US was negative for GB issues. She has no h/o liver issues in the past. She was given IV Rocephin and IV toradol x 1 in the ER. Principal Diagnosis Right-sided pyelonephritis Discharge Exam The patient appeared well Vital signs as documented. Lungs are clear to auscultation and appear unlabored Cardiac exam, Rhythm is regular.. No murmurs, rubs or gallops. Abdominal exam reveals normal bowel sounds, soft non tender, no masses no back pain or abdominal pain noted Extremities are nonedematous and both pedal pulses are normal. Neurologic exam is alert and oriented, no focal loss of strength or sensation Skin is without bruises or rashes Psychologically is without concerns for anxiety or depression Discharge Data Allergies Allergy/AdvReac Type Severity Reaction Status Date / Time midazolam [From Versed] Allergy Mild Itching Verified 11/01/19 20:28 Consultations 11/01/19 12:14 ED Decision to Admit Stat Ordered Studies 11/01/19 10:59 CT abd pelvis IV con only Stat 11/01/19 11:38 CT head/brain wo con Stat 11/01/19 14:07 US gallbladder Stat Hospital Course (1) Pyelonephritis: With Acute Right sided pyelonephritis--> with UA+, fevers/chills, RUQ abd pain, CT A/P confirms Rt pyelo, leukocytosis and cloudy dark urine. After gallbladder issue was ruled out the patient be discharged on p.o. Cipro for 7-day therapy Urine preliminarily shows E. coli will call the patient once sensitivities are returned - (2) Sepsis: Secondary to pyelo as above CXR negative, no evidence of other infection on CT abd/pel, checking RUQ US for elevated LFTs and RUQ pain With mild GARCIA secondary to fever but do not suspect COVID, tick borne illness, PNA. Do NOT suspect meningitis (3) GERD (gastroesophageal reflux disease): continue PPI daily (4) Depression with anxiety: not on meds since she no longer has a doctor but used to be on Zoloft and trazadone -Did not restart -needs outpt establishment with a PCP (5) Current smoker: encouraged smoking cessation but she declines at this time (6) Elevated LFTs: With TBili mildly elevated, AST and ALT and Alk phos elevated With RUQ pain-->negative RUQ US Seems of improved she is given information on a low-fat diet (7) Headache: Resolved Total Time Total Time Spent Total Time Spent (In Minutes): It required greater than 30 minutes to prepare this patient for discharge Discharge Plan Discharge Items Patient Disposition: Home - Self-Care Reason For Visit: ACUTE PYELONEPHRITIS,ELEVATED LFTS Discharge Diagnosis: pyelonephritis Activity: Per Instructions section Non-emergency contact: Primary Care Provider Call non-emergency contact if: you have any medication questions and your sympto ms worsen Follow-up/Referrals: PCP,NO [Primary Care Provider] - Diet: Regular Addtl Attending Provider Instructions: plenty of liquids and rest may use AZO or cranberry to help symptoms Pending Studies at Discharge: No Stand-Alone Forms: My DeskActive, Smoking Cessation Medications and DC Order Prescriptions: New ciprofloxacin HCl [Cipro] 500 mg tablet 500 mg PO BID Qty: 12 RF: 0 Continued naproxen sodium [Aleve] 220 mg Tablet 880 mg PO Q12H PRN (Reason: Pain) RF: 0 esomeprazole magnesium [Nexium] 20 mg Capsule,Delayed Release(Dr/Ec) 40 mg PO PM RF: 0 Discharge Orders: Discharge Order (Routine); Ordered 11/02/19 Ordered By: Kale Gonsalves/Other Patient Handouts: Smoking Get Help for Quitting, ED Low- Cholesterol Diet Admission Data Admit Date/Time: 11/01/19 14:13 Attending Provider: Kale Dc Admit Provider: Angeles Santos Primary Care Provider: PCP,NO Other Providers: Angeles Santos Other Interventions: Discharge Summary Assessment (RN) Last Done: 11/02/19 14:38 DC Date/Time DO NOT enter until pt leaves facility: 11/02/19 14:56 Coding Level of Care Code D/C Day Management >30 mins Diagnoses Pyelonephritis N12 Sepsis A41.9 Sepsis acute organ dysfunction status: unspecified Sepsis type: sepsis due to unspecified organism GERD (gastroesophageal reflux disease) K21.9 Depression with anxiety F41.8 Current smoker F17.200 Elevated LFTs R79.89 Headache R51
== END 2019-11-02 14:56 | disposition home or self-care (01) ==
LOC: ED 10:15 → 2W 10:15 → SUATTDRO 14:13 → 2W 16:11